=== PATIENT | male | born 1990 | race Two or more races ===

== ENCOUNTER 2024-02-29 13:43 | Emergency (ER) | payer SELFPAY ==
[~2024-02-29] VITALS: Ht 167.6 cm; Wt 60.7 kg
[2024-02-29 15:11] VITALS: BP 115/66; PULSE 91; RESP 14; O2SAT 98
== END 2024-02-29 14:45 | disposition left against medical advice (07) ==
LOC: ER 13:43
DX: R44.0 Auditory hallucinations (principal); Z53.21 Procedure and treatment not carried out due to patient leaving prior to being seen by health care provider